=== PATIENT | male | born 2000 | race Caucasian/White ===

== ENCOUNTER 2018-07-22 07:45 | Emergency (ER) | payer OTHER ==
[2018-07-22] MEDS ORDERED: KETOROLAC 15 MG/ML VIAL IVP STA (08:12)
[2018-07-22] MEDS ORDERED: MORPHINE 10 MG/ML VIAL IVP STA (08:12)
[2018-07-22] MEDS ORDERED: SODIUM CHLORIDE 0.9% 2,000 ML IV ONE (08:12)
[2018-07-22] MEDS ORDERED: ONDANSETRON 4 MG/2 ML VIAL IVP STA (08:12)
[2018-07-22] MEDS ORDERED: FAMOTIDINE 20 MG in SODIUM CHLORIDE 0.9% 50 ML IV STA (08:17)
--- NOTE | 2018-07-22 08:24 | ED Physician Documentation ---
History of Present Illness - Stated complaint Stated Complaint: V/D POST SURGERY - Chief complaint Chief Complaint: General - Additonal information Additional information: 17-year-old male presents the emergency department for evaluation of vomiting and diarrhea for the past 2 days. The patient reports intermittent lower abdominal cramping which is worse before the episodes of vomiting or diarrhea. The patient denies any continuous focal abdominal pain. The patient does report ongoing soreness in his abdomen. The patient denies blood in the vomit or stools. The patientDenies chest pain or shortness of breath. The patient has not been able to keep down his pain medication and now the pain at the postoperative site is not controlled. The patient is denying any active suicidal or homicidal ideations. The patient states that he is not here for any suicidal thoughts or ideations and does not want to be evaluated by social work. The other symptoms are described as moderate. No relieving factors Review of Systems Constitutional: denies: Fever, Chills Eyes: denies: Discharge Ears: denies: Ear pain Nose: denies: Congestion Throat: denies: Sore throat Cardiac: denies: Chest pain / pressure Respiratory: denies: Cough GI: reports: Abdominal Pain, Nausea, Vomiting, Diarrhea. denies: Bloody / black stool : denies: Dysuria Skin: denies: Rash Musculoskeletal: denies: Back pain Neurologic: denies: Head injury Psychiatric: denies: Suicidal, Homicidal PD PAST MEDICAL HISTORY - Past Medical History Psych: Depression, Anxiety - Past Surgical History Past Surgical History: No - Present Medications Home Medications: Ambulatory Orders Medication Instructions Recorded Confirmed Hydrocodone/Acetaminophen 1 - 2 each PO Q6H PRN #20 tablet 07/12/18 [Hydrocodon-Acetaminophen 5-325] Knee Scooter 1 unit TD ONCE #1 07/12/18 Ondansetron Odt [Zofran] 4 mg TL Q6H PRN #30 tablet 07/22/18 - Allergies Allergies/Adverse Reactions: Allergies Allergy/AdvReac Type Severity Reaction Status Date / Time No Known Drug Allergies Allergy Verified 07/22/18 09:11 - Social History Does the pt smoke?: Yes Smoking Status: Current every day smoker Does the pt drink ETOH?: Yes Does the pt have substance abuse?: Yes - Immunizations Immunizations are current?: Yes - POLST Patient has POLST: No PD ED PE NORMAL - General General: Alert and oriented X 3, No acute distress - HEENT HEENT: Atraumatic, PERRL, EOMI, Ears normal - Neck Neck: Supple, no meningeal sign - Cardiac Cardiac: RRR, Strong equal pulses - Respiratory Respiratory: No respiratory distress, Clear bilaterally - Abdomen Abdomen: Normal bowel sounds, Soft, Non distended. No: Non tender (The patient has generalized lower abdominal tenderness, there is no focal area of tenderness, no rebound or peritoneal signs) - Derm Derm: Normal color - Extremities Extremities: No deformity - Neuro Neuro: Alert and oriented X 3, Normal speech - Psych Psych: Normal affect Results - Vitals Vitals: Vital Signs - 24 hr 07/22/18 07/22/18 07:53 08:54 Temperature 36.0 C L Heart Rate 99 78 Respiratory 14 18 Rate Blood Pressure 112/67 117/67 O2 Saturation 100 100 Oxygen O2 Source Room air - Labs Labs: Laboratory Tests 07/22/18 07/22/18 08:20 08:20 WBC 8.6 RBC 4.50 L Hgb 14.4 Hct 40.7 L MCV 90.5 MCH 32.0 H MCHC 35.4 RDW 12.7 Plt Count 289 MPV 8.1 Neut # (Auto) 6.0 Lymph # (Auto) 1.4 L [place] # (Auto) 1.2 H Eos # (Auto) 0.1 Baso # (Auto) 0.0 Absolute Nucleated RBC 0.00 Nucleated RBC % 0.1 Sodium 136 Potassium 4.1 Chloride 99 L Carbon Dioxide 26 Anion Gap 11.0 BUN 11 Creatinine 0.8 Estimated GFR (MDRD) 125 Glucose 109 H Calcium 9.2 Total Bilirubin 0.6 AST 19 ALT 25 Alkaline Phosphatase 55 Total Protein 7.5 Albumin 4.3 Globulin 3.2 Albumin/Globulin Ratio 1.3 Lipase 20 L PD MEDICAL DECISION MAKING - ED course ED course: The patient's symptoms most likely represent a viral etiology with a nausea vomiting and diarrhea, the patient had no focal area of pain on examination and on reevaluation the patient is resting comfortably and his symptoms Are under good control and currently the patient has no nausea or abdominal pain and is eating and drinking in the emergency department. Presently appendicitis, acute cholecystitis, acute diverticulitis or An acute intra-abdominal surgical process is of low probability and currently I do not think a CT scan would be of much utility. Currently the patient appears appropriate for discharge and ongoing outpatient management. The patient is adamant that he is not suicidal and does not want evaluation for his statement in triage. His mother who is in the room agrees with this. Departure - Departure Disposition: 01 Home, Self Care Clinical Impression: Vomiting and diarrhea, Abdominal cramping, Postoperative pain Condition: Good Instructions: ED Diet Vomiting Diarrhea Prescriptions: Ondansetron Odt [Zofran] 4 mg TL Q6H PRN #30 tablet PRN Reason: Nausea / Vomiting Comments: Please follow-up with your primary care and orthopedic surgeon as scheduled If your diarrhea lasts longer than 10 days please ask your primary care to arrange for outpatient stool studies Please return to the emergency department immediately for any worsening or any concerns.
[2018-07-22 08:39] LABS: BASOPHILS % (AUTO) 0.3 %; EOSINOPHILS # (AUTO) 0.1 10^3/uL (0.0-0.7); EOSINOPHILS % (AUTO) 1.5 %; HGB - HEMOGLOBIN 14.4 g/dL (14.0-18.0); LYMPHOCYTES # (AUTO) 1.4 10^3/uL (1.5-3.5); LYMPHOCYTES % (AUTO) 15.7 %; MEAN CORPUSCULAR HGB CONC 35.4 g/dL (32.0-36.0); MEAN CORPUSCULAR VOLUME 90.5 fL (80.0-94.0); MEAN PLATELET VOLUME 8.1 fL (7.4-11.4); MONOCYTES # (AUTO) 1.2 10^3/uL (0.0-1.0); MONOCYTES % (AUTO) 13.4 %; NEUTROPHILS % (AUTO) 69.1 %; PLT - PLATELET COUNT 289 10^3/uL (130-450); RED CELL DISTRIBUTION WIDTH 12.7 % (12.0-15.0); WHITE BLOOD COUNT 8.6 x10^3/uL (4.8-10.8)
[2018-07-22 08:52] LABS: ALBUMIN 4.3 g/dL (3.2-5.5); ALBUMIN/GLOBULIN RATIO 1.3 (1.0-2.2); BILIRUBIN,TOTAL 0.6 mg/dL (0.2-1.0); CALCIUM 9.2 mg/dL (8.5-10.3); CREATININE 0.8 mg/dL (0.6-1.2); TOTAL PROTEIN 7.5 g/dL (6.7-8.2)
[2018-07-22 08:55] VITALS: BP 117/67
== END 2018-07-22 09:31 | disposition home or self-care (01) ==
LOC: ED 07:45 → MERGE 07:45 → ED 09:31
DX: R11.2 Nausea with vomiting, unspecified (principal); R10.9 Unspecified abdominal pain; R19.7 Diarrhea, unspecified; G89.18 Other acute postprocedural pain; F17.200 Nicotine dependence, unspecified, uncomplicated
CPT/HCPCS: 36415; 80053; 83690; 85025; 96374; 96375; 99283; J7040

== ENCOUNTER 2023-01-04 12:48 | Emergency (ER) | payer MEDICAID, OTHER ==
[2023-01-04 14:27] VITALS: BP 122/67
[2023-01-04] MEDS ORDERED: BUFFERED LIDOCAINE 10 ML SYRINGE SUBQ STA (14:36)
[2023-01-04] MEDS ORDERED: BACITRACIN ZINC OINT 1 PACKET TOP STA (14:58)
--- NOTE | 2023-01-04 15:00 | ED Physician Documentation ---
PD HPI UPPER EXT INJURY - Stated complaint Stated Complaint: LT ARM INJURY - Chief complaint Chief Complaint: Laceration - History obtained from History obtained from: Patient - History of Present Illness Location: Left, Arm Timing - duration: Hours (1) Timing - details: Abrupt onset Pain level max: 1 Pain level now: 1 Associated symptoms: No: Weakness, Numbness, Tingling - Additonal information Additional information: 22-year-old male presents to the emergency department with a left arm laceration. He was working on his car prior to arrival trying to unstick a nut when he slipped and lacerated the left arm. Tetanus up-to-date. Nothing makes it better or worse. Patient is right-handed. PD PAST MEDICAL HISTORY - Past Medical History Past Medical History: Yes Cardiovascular: None Respiratory: None Neuro: None Endocrine/Autoimmune: None GI: None : None HEENT: None Psych: Depression, Anxiety Musculoskeletal: None Derm: None - Past Surgical History Past Surgical History: No - Present Medications Home Medications: Ambulatory Orders Medication Instructions Recorded Confirmed Buprenorphine HCl/Naloxone HCl 1 each SL DAILY 01/04/23 01/04/23 [Buprenorphine-Nalox 8-2Mg Film] - Allergies Allergies/Adverse Reactions: Allergies Allergy/AdvReac Type Severity Reaction Status Date / Time No Known Drug Allergies Allergy Verified 01/04/23 12:53 - Social History Does the pt smoke?: Yes Smoking Status: Current every day smoker Does the pt drink ETOH?: Yes ETOH Use: Beer Does the pt have substance abuse?: Yes Substance Use and Type: Other - Immunizations Immunizations are current?: Yes Immunizations: TDAP current <10years - POLST Patient has POLST: No PD ED PE NORMAL - Vitals Vital signs reviewed: Yes - General General: Alert and oriented X 3, No acute distress - Derm Derm: Warm and dry - Extremities Extremities: Other (L arm - 2 cm linear laceration just proximal to the ED olecranon on the medial aspect. Neurovascular intact. Subcutaneous.) - Neuro Neuro: Alert and oriented X 3 - Psych Psych: Normal mood, Normal affect Results - Vitals Vitals: Vital Signs - 24 hr 01/04/23 01/04/23 12:54 14:22 Temperature 36.3 C L 36.8 C Heart Rate 79 69 Respiratory 16 16 Rate Blood Pressure 118/71 122/67 O2 Saturation 100 100 Oxygen O2 Source Room air Procedures - Laceration (location) Left arm Length in cm: 2 Wound type: Linear, Into subcut fat, Clean Neurovascular status: Sensory intact, Vascular intact Tendon involvement: Tendon intact Anesthesia: Lidocaine 1%, With bicarb Wound preparation: Irrigated copiously NS Skin layer closure: Nylon, Interrupted, Size #-0 - enter number (4) Other: Patient tolerated well, No complications, Neurovascular intact, Dressing applied, Tetanus UTD PD Medical Decision Making - ED course Complexity details: considered differential, d/w patient ED course: Laceration repaired. Tolerated well. No other injuries. Tetanus up-to-date. Warnings of infection and instructions on wound care given at bedside. Also counseled on how to minimize scarring. Patient counseled regarding signs and symptoms for which I believe and urgent re-evaluation would be necessary. Patient with good understanding of and agreement to plan and is comfortable going home at this time This document was made in part using voice recognition software. While efforts are made to proofread this document, sound alike and grammatical errors may occur. Departure - Departure Disposition: 01 Home, Self Care Clinical Impression: Arm laceration Qualifiers: Encounter type: initial encounter Laterality: left Qualified Code(s): S41.112A - Laceration without foreign body of left upper arm, initial encounter Condition: Good Instructions: ED Laceration All Comments: Please follow-up with your doctor or one of the walk-in clinics in approximately 10 to 14 days for suture removal. Keep the wound clean. Return if you notice redness, swelling or drainage from the wound. Discharge Date/Time: 01/04/23 15:09
== END 2023-01-04 15:09 | disposition home or self-care (01) ==
LOC: ED 12:48
DX: S41.112A Laceration without foreign body of left upper arm, initial encounter (principal); W45.8XXA Other foreign body or object entering through skin, initial encounter; F17.200 Nicotine dependence, unspecified, uncomplicated
CPT/HCPCS: 12001; 99282; A9270

== ENCOUNTER 2023-05-03 17:31 | Emergency (ER) | payer OTHER ==
--- NOTE | 2023-05-03 17:54 | ED Physician Documentation ---
PD HPI DYSPNEA - Stated complaint Stated Complaint: CHEST PX - Chief complaint Chief Complaint: Resp - History obtained from History obtained from: Patient, Family - Additional information Additional information: Previous healthy young man got sick a few days ago with productive cough of brown and red sputum, shortness of breath. He has not had fevers. He went to the walk-in clinic on Thursday where he was diagnosed with multifocal pneumonia. He was started on Augmentin and azithromycin and feels worse. He was prescribed nebulizer medication but they have not been able to find nebulizer and it seems all the drugstores are out. PD PAST MEDICAL HISTORY - Past Medical History Cardiovascular: None Respiratory: None Neuro: None Endocrine/Autoimmune: None GI: None : None HEENT: None Psych: Depression, Anxiety Musculoskeletal: None Derm: None - Past Surgical History Past Surgical History: No - Present Medications Home Medications: Ambulatory Orders Medication Instructions Recorded Confirmed Buprenorphine HCl/Naloxone HCl 1 each SL DAILY 01/04/23 01/04/23 [Buprenorphine-Nalox 8-2Mg Film] Albuterol Sulf [Ventolin Hfa 1 - 2 puffs INH Q4HR PRN #1 each 05/03/23 Inhaler] - Allergies Allergies/Adverse Reactions: Allergies Allergy/AdvReac Type Severity Reaction Status Date / Time No Known Drug Allergies Allergy Verified 05/03/23 17:44 - Social History Does the pt smoke?: Yes Smoking Status: Current every day smoker Does the pt drink ETOH?: Yes Does the pt have substance abuse?: Yes - Immunizations Immunizations are current?: Yes Immunizations: TDAP current <10years - POLST Patient has POLST: No PD ED PE NORMAL - Vitals Vital signs reviewed: Yes - General General: Alert and oriented X 3, No acute distress - Cardiac Cardiac: RRR, No murmur - Respiratory Respiratory: Other (Significant rhonchi both bases, nonlabored) - Abdomen Abdomen: Normal bowel sounds, Soft, Non tender - Neuro Neuro: Alert and oriented X 3, Normal speech Results - Vitals Vitals: Vital Signs - 24 hr 05/03/23 05/03/23 05/03/23 17:36 18:58 19:52 Temperature 36.5 C Heart Rate 95 98 Respiratory 20 28 H 20 Rate Blood Pressure 127/79 115/81 H O2 Saturation 98 91 L Oxygen O2 Source Room air - Labs Labs: Laboratory Tests 05/03/23 05/03/23 05/03/23 17:58 18:15 18:15 WBC 16.7 H RBC 4.52 L Hgb 13.3 L Hct 38.9 L MCV 86.1 MCH 29.4 MCHC 34.2 RDW 12.1 Plt Count 437 MPV 8.9 Neut # (Auto) Not Reportable Lymph # (Auto) Not Reportable [place] # (Auto) Not Reportable Eos # (Auto) Not Reportable Baso # (Auto) Not Reportable Absolute Nucleated RBC Not Reportable Total Counted 100 Band Neuts % (Manual) 5 Abnorm Lymph % (Manual) 0 Metamyelocytes % 3 H Myelocytes % 2 H Nucleated RBC % Not Reportable Neutrophils # (Manual) 12.0 H Lymphocytes # (Manual) 2.5 Monocytes # (Manual) 1.3 H Eosinophils # (Manual) 0.0 Basophils # (Manual) 0.0 Differential Comment MANUAL DIFFERENTIAL Platelet Estimate NORMAL (130-450,000) Platelet Morphology NORMAL APPEARANCE RBC Morph Micro Appear NORMAL APPEARANCE Sodium 137 Potassium 3.4 L Chloride 95 L Carbon Dioxide 30 Anion Gap 12.0 BUN 12 Creatinine 0.6 Estimated GFR (MDRD) 166 Glucose 108 H Lactic Acid Calcium 9.4 Nasal Adenovirus (PCR) NOT DETECTED Nasal B. parapertussis DNA (PCR) NOT DETECTED Nasal Coronavir 229E PCR NOT DETECTED Nasal Coronavir HKU1 PCR NOT DETECTED Nasal Coronavir NL63 PCR NOT DETECTED Nasal Coronavir OC43 PCR NOT DETECTED Nasal Enterovir/Rhinovir PCR NOT DETECTED Nasal Influenza B PCR NOT DETECTED Nasal Influenza A PCR NOT DETECTED Nasal Parainfluen 1 PCR NOT DETECTED Nasal Parainfluen 2 PCR NOT DETECTED Nasal Parainfluen 3 PCR NOT DETECTED Nasal Parainfluen 4 PCR NOT DETECTED Nasal RSV (PCR) NOT DETECTED Nasal B.pertussis DNA PCR NOT DETECTED Nasal C.pneumoniae (PCR) NOT DETECTED Dylan Human Metapneumo PCR NOT DETECTED Nasal M.pneumoniae (PCR) NOT DETECTED Nasal SARS-CoV-2 (PCR) NOT DETECTED 05/03/23 18:15 WBC RBC Hgb Hct MCV MCH MCHC RDW Plt Count MPV Neut # (Auto) Lymph # (Auto) [place] # (Auto) Eos # (Auto) Baso # (Auto) Absolute Nucleated RBC Total Counted Band Neuts % (Manual) Abnorm Lymph % (Manual) Metamyelocytes % Myelocytes % Nucleated RBC % Neutrophils # (Manual) Lymphocytes # (Manual) Monocytes # (Manual) Eosinophils # (Manual) Basophils # (Manual) Differential Comment Platelet Estimate Platelet Morphology RBC Morph Micro Appear Sodium Potassium Chloride Carbon Dioxide Anion Gap BUN Creatinine Estimated GFR (MDRD) Glucose Lactic Acid 0.8 Calcium Nasal Adenovirus (PCR) Nasal B. parapertussis DNA (PCR) Nasal Coronavir 229E PCR Nasal Coronavir HKU1 PCR Nasal Coronavir NL63 PCR Nasal Coronavir OC43 PCR Nasal Enterovir/Rhinovir PCR Nasal Influenza B PCR Nasal Influenza A PCR Nasal Parainfluen 1 PCR Nasal Parainfluen 2 PCR Nasal Parainfluen 3 PCR Nasal Parainfluen 4 PCR Nasal RSV (PCR) Nasal B.pertussis DNA PCR Nasal C.pneumoniae (PCR) Dylan Human Metapneumo PCR Nasal M.pneumoniae (PCR) Nasal SARS-CoV-2 (PCR) - Rads (name of study) 2 view chest x-ray showing right middle lobe pneumonia with slightly improved aeration compared to 2 days ago. Relevant Findings:: Final report received, EMP independent interpretation of test PD Medical Decision Making - ED course ED course: 22-year-old gentleman who is kind of miserable with pneumonia but has relatively unremarkable vital signs and feeling better after a neb here. They had trouble filling the neb and I will prescribe simple albuterol instead. His x-ray looks improved and his labs are as expected with a leukocytosis and negative COVID testing and normal electrolytes. He received 2 mg of IV Rocephin here. Also IV fluids. PSI score 24, risk class I Departure - Departure Disposition: 01 Home, Self Care Clinical Impression: Pneumonia Qualifiers: Pneumonia type: due to unspecified organism Laterality: right Lung location: middle lobe of lung Qualified Code(s): J18.9 - Pneumonia, unspecified organism Condition: Good Record reviewed to determine appropriate education?: Yes Instructions: ED Pneumonia Adult Prescriptions: Albuterol Sulf [Ventolin Hfa Inhaler] 1 - 2 puffs INH Q4HR PRN #1 each PRN Reason: Shortness Of Air/Wheezing Comments: You can continue the current antibiotics tomorrow. Return for new or worsening symptoms or if not better over the next couple of days. COVID testing was negative and nothing unexpected on blood work. Forms: PCP List Discharge Date/Time: 05/03/23 20:03
[2023-05-03] MEDS: IPRATROPIUM/ALBUTEROL 3 ML NEB INH STA (18:10)
--- NOTE | 2023-05-03 18:20 | XRAY Report ---
PROCEDURE: Chest 2 View X-Ray INDICATIONS: PNA, FEELS WORSE TECHNIQUE: 2 views of the chest were acquired. COMPARISON: None. FINDINGS: Surgical changes and devices: None. Lungs and pleura: Opacity within the right middle lobe decreased in conspicuity from comparison. No pleural effusion. No pneumothorax. Mediastinum: Mediastinal contours appear normal. Heart size is normal. Bones and chest wall: No suspicious bony lesions. Overlying soft tissues appear unremarkable. IMPRESSION: Right middle lobe pneumonia with mildly improved aeration. Reviewed by: George Mata MD on 05/03/2023 5:18 PM DARY Approved by: George Mata MD on 05/03/2023 5:18 PM AKRENNY Station ID: [id number]
[2023-05-03 18:24] LABS: BASOPHILS % (AUTO) 0.2 %; EOSINOPHILS % (AUTO) 0.9 %; HCT - HEMATOCRIT 38.9 % (42.0-52.0); HGB - HEMOGLOBIN 13.3 g/dL (14.0-18.0); LYMPHOCYTES % (AUTO) 11.1 %; MEAN CORPUSCULAR HEMOGLOBIN 29.4 pg (27.0-31.0); MEAN CORPUSCULAR HGB CONC 34.2 g/dL (32.0-36.0); MEAN CORPUSCULAR VOLUME 86.1 fL (80.0-94.0); MEAN PLATELET VOLUME 8.9 fL (7.4-11.4); MONOCYTES % (AUTO) 7.4 %; NEUTROPHILS % (AUTO) 61.5 %; PLT - PLATELET COUNT 437 10^3/uL (130-450); RED BLOOD COUNT 4.52 10^6/uL (4.70-6.10); RED CELL DISTRIBUTION WIDTH 12.1 % (12.0-15.0); WHITE BLOOD COUNT 16.7 x10^3/uL (4.8-10.8)
[2023-05-03] MEDS: SODIUM CHLORIDE 0.9% 1,000 ML IV STA (18:25)
[2023-05-03 18:26] LABS: ABNORMAL LYMPHS % (MANUAL) 0 %
[2023-05-03 18:40] LABS: CALCIUM 9.4 mg/dL (8.5-10.3); CREATININE 0.6 mg/dL (0.6-1.3); POTASSIUM 3.4 mmol/L (3.5-4.5)
[2023-05-03 19:04] LABS: B. PARAPERTUSSIS- RESP PCR PAN NOT DETECTED; B. PERTUSSIS- RESP PCR PANEL NOT DETECTED; C. PNEUMONIAE- RESP PCR PANEL NOT DETECTED; CORONAVIRUS 229E-RESP PCR NOT DETECTED; CORONAVIRUS HKU1-RESP PCR NOT DETECTED; CORONAVIRUS NL63-RESP PCR NOT DETECTED; CORONAVIRUS OC43-RESP PCR NOT DETECTED; HUMAN METAPNEUMOVIRUS NOT DETECTED; INFLUENZA A- RESP PCR PANEL NOT DETECTED; INFLUENZA B - RESP PCR PANEL NOT DETECTED; M. PNEUMONIAE- RESP PCR PANEL NOT DETECTED; PARAINFLUENZA VIRUS 1 NOT DETECTED; PARAINFLUENZA VIRUS 2 NOT DETECTED; PARAINFLUENZA VIRUS 3 NOT DETECTED; PARAINFLUENZA VIRUS 4 NOT DETECTED; RHINOVIRUS/ENTEROVIRUS NOT DETECTED; RSV- RESP PCR PANEL NOT DETECTED; SARS-CoV-2 -RESP PCR PANEL NOT DETECTED
[2023-05-03 19:10] LABS: BAND NEUTROPHILS % (MANUAL) 5 %; LYMPHOCYTES # (MANUAL) 2.5 10^3/uL (1.5-3.5); LYMPHOCYTES % (MANUAL) 15 %; METAMYELOCYTES % (MANUAL) 3 %; MONOCYTES # (MANUAL) 1.3 10^3/uL (0.0-1.0); MYELOCYTES % (MANUAL) 2 %
[2023-05-03 19:11] LABS: DIFFERENTIAL COMMENT MANUAL DIFFERENTIAL; PLATELET ESTIMATE, MANUAL NORMAL (130-450,000) (NORMAL); PLATELET MORPHOLOGY NORMAL APPEARANCE (NORMAL); RBC MORPHOLOGY (MULTIPLE) NORMAL APPEARANCE (NORMAL)
[2023-05-03] MEDS: cefTRIAXone 2 GM VIAL IVP STA (19:40)
[2023-05-03 19:56] VITALS: BP 115/81; O2SAT 91
== END 2023-05-03 20:03 | disposition home or self-care (01) ==
LOC: ED 17:31
DX: J18.9 Pneumonia, unspecified organism (principal); F17.200 Nicotine dependence, unspecified, uncomplicated; Z20.822 Contact with and (suspected) exposure to COVID-19; Z79.899 Other long term (current) drug therapy
CPT/HCPCS: 36415; 80048; 83605; 85025; 87633; 94640; 96374; 99284